=== PATIENT | male | born 1945 ===

== ENCOUNTER 2025-04-05 14:53 | Emergency (ER) | payer MEDICARE, BC, SELFPAY ==
[2025-04-05 15:05] VITALS: BP 152/70
[2025-04-05 15:39] LABS: Hematocrit 34.4 % (39.0-52.0); Hemoglobin 11.5 g/dL (13.0-18.0); Mean Corp Hgb Conc. 33.4 g/dL (33.0-37.0); Mean Corpuscular Volume 92.0 fL (80.0-94.0); Platelet Count 171 10^3/uL (130-400); Red Cell Dist. Width 12.2 % (11.5-14.5)
[2025-04-05 15:55] LABS: ALT (SGPT) 20 U/L (0-50); AST (SGOT) 26 U/L (17-59); Albumin 4.3 g/dl (3.5-5.0); Alkaline Phosphatase 60 U/L (38-126); Blood Urea Nitrogen 30 mg/dl (9-20); Calcium 10.1 mg/dl (8.4-10.2); Carbon Dioxide 23 mmol/L (22-30); Chloride 109 mmol/L (98-107); Glucose 92 mg/dl (70-99); Potassium 4.7 mmol/L (3.5-5.1); Sodium 139 mmol/L (135-145); Total Protein 7.3 g/dl (6.3-8.2); eGFR > 60.00
[2025-04-05 16:01] LABS: Troponin I < 0.012 ng/ml
[2025-04-05 16:25] LABS: Nucleated Red Blood Cells % 0 % (-)
[2025-04-05 17:39] VITALS: BP 146/70
[2025-04-05 18:00] VITALS: BP 122/70
[2025-04-05 18:14] VITALS: BMI 28.5
[2025-04-05 19:00] VITALS: BP 135/71
[2025-04-05 19:12] LABS: D-Dimer 0.66 ug/mlFEU (0.00-0.50)
[2025-04-05 19:23] LABS: COVID-19 Antigen Negative (Negative)
--- NOTE | 2025-04-05 19:38 | ED.GENMED ---
History of Present Illness
General
Chief Complaint: Breathing Problem
Source: patient
Exam Limitations: none
Time Seen by Provider: 04/05/25 17:55
Nursing documentation reviewed up to this point in time: agreed with
History of Present Illness
History of Present Illness:
SEE mdm
Review of Systems
Review of Systems
Allergies reviewed?: Yes
All Other Systems: Not applicable
Phy Exam
Physical Exam
Physical Exam:
SEE mdm
Scores
Heart Failure Risk
Heart Failure Risk Score: Not Applicable
Course
Orders/Labs/Results
Orders:
Orders
04/05/25 15:05
EKG [Electrocardiogram (*1)] Urgent
Reason for Study: Shortness of Breath
EKG- Treatment ONCE
04/05/25 15:15
BNP [NT-proBNP] Urgent
CBC/With Diff [Complete Blood Count/With Diff] Urgent
CMP [Comprehensive Metabolic Panel] Urgent
Troponin I Urgent
04/05/25 18:32
CR Chest - 2 Views Urgent
Comment:
Reason For Exam: h/o dvt, sob
Venous Doppler Lwr Ext Bilat [US Periph Venous LOWER Ext Nadeem] Urgent
Comment:
Reason For Exam: h/o dvt sob
04/05/25 18:43
COVID-19 Antigen Urgent
Source: Nasal Swab
D-Dimer Urgent
Influenza A+B Rapid Molecular Urgent
KILEY Source: Nasal Swab
Specimen Description:
Abnormal Lab Results
04/05/25 04/05/25
15:15 18:43
RBC 3.74 L 10^6/uL
(4.70-6.10)
Hgb 11.5 L g/dL
(13.0-18.0)
Hct 34.4 L %
(39.0-52.0)
Abs Immat Gran (auto) 0.1 H 10^3/uL
(0-0.05)
Absolute Lymphs (auto) 4.1 H 10^3/uL
(1.2-3.4)
Absolute Monos (auto) 0.7 H 10^3/uL
(0.1-0.6)
D-Dimer 0.66 H ug/mlFEU
(0.00-0.50)
Chloride 109 H mmol/L
(98-107)
BUN 30 H mg/dl
(9-20)
04/05/25 15:15
04/05/25 15:15
Vital Signs
Initial and Last Documented VS:
Initial Vital Signs
Temp Pulse Resp BP Pulse Ox
36.6 C 81 14 152/70 97
04/05/25 15:05 04/05/25 15:05 04/05/25 15:05 04/05/25 15:05 04/05/25 15:05
Last Documented Vital Signs
Temp Pulse Resp BP Pulse Ox
36.6 C 57 14 140/71 99
04/05/25 15:05 04/05/25 20:30 04/05/25 20:30 04/05/25 20:04 04/05/25 20:47
MDM/Problems Addressed
Differential Diagnosis Includes:
see MDM
MDM/Problems Addressed:
Note:
CHIEF COMPLAINT(S)
Shortness of breath
HISTORY OF PRESENT ILLNESS
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 Initially, the shortness of breath was
very sparing, occastionally feeling like he had a few breaths that were quick and then resolved, but it has been worsening very gradually. The patient notes that he can still walk with his walker and navigate down to the dining room and he doesn't
feel his activity is contributing to SOB feeling worse. he just told his about this feeling today; she has not noticed him to be SOB
pt did have URI about 3-4 days ago with congestion and sneeezing. no coughing
he did not test for covid and feels like he is getting better.
There is no associated chest pain, no history of syncope, or palpitations. Shortness of breath has not been severe enough to limit his daily activities significantly, and he has not experienced recent changes in weight or appetite.
PAST MEDICAL AND SURIGICAL HISTORY
The patient has a history of a deep venous thrombosis (DVT) prior to 1990, which was treated with anticoagulants. He underwent heart surgery including a triple bypass and has had stents placed in the past. He also had bladder cancer over ten years
ago, which was successfully treated. The patient has been dealing with prostate issues, leading him to moderate his liquid intake.
CHRONIC MEDICAL CONDITIONS SIGNIFICANTLY AFFECTING CARE
- History of heart surgery (triple bypass and stents)
- History of bladder cancer
- Prostate issues affecting urination patterns
- Previous deep venous thrombosis
SOCIAL DETERMINANTS AFFECTING HEALTH
The patient lives in a setting where he can manage with assistance and navigates the environment with a walker.
REVIEW OF SYSTEMS
ros: dyspnea
no chest pain, cough
uri symptoms congestion improving
no fever/chills
abd: no nausea/vomiting
no leg swelling/tendenress that is new from baseline; chronic club foot
PHYSICAL EXAM
GENERAL: Alert , in no apparent distress, speaking in full sentences, very well-appearing, comfortable, no distress
EYE: pupils equal and reactive
NECK: Supple
ENT: b/l TM s clear, pharynx erythematous but no tonsillar hypertrophy or exudates
CARDIAC: Regular rate and rhythm, no edema
R leg is slightly larger than left, congenitally; no edema
LUNGS: Clear breath sounds bilaterally, no acute respiratory distress, no wheezes/rales/rhonchi, occ cough
ABDOMEN: Soft, without focal tenderness, no r/g, no cvat, normal bowel sounds
NEUROLOGICAL: Alert and oriented, no focal neuro deficits
SKIN: Warm and dry, skin intact.
MUSCULOSKELETAL: R leg nontender but larger in circumfernece than L
congenital club foot L
PSYCH: Normal and appropriate interaction.
PROBLEM LIST
- Acute: Shortness of breath
- Chronic: History of heart surgery, irregular urination patterns due to prostate issues, previous deep venous thrombosis.
PLAN
- Order ultrasound of the legs to rule out deep venous thrombosis.
- Conduct a chest X-ray to assess for potential pneumonia or fluid around the heart.
- Perform a blood test, possibly a D-dimer, to evaluate for pulmonary embolism.
- Due to recent upper respiratory infection, consider testing for COVID-19.
- Encouraged to advance cardiology follow-up if symptoms worsen.
DIFFERENTIAL DIAGNOSIS
The Differential Diagnosis includes, in no particular order and is not limited to:
1. Pulmonary embolism
2. Congestive heart failure
3. Pneumonia
4. Chronic obstructive pulmonary disease exacerbation
5. Anxiety-related dyspnea
6. Covid-19 or other viral infections
7. Deconditioning
8. Anemia-related fatigue
9. Obstructive sleep apnea
10. Coronary artery disease exacerbation
04/05/25 - 20:27
80-year-old male complaining of intermittent very brief shortness of breath feeling which feels like he has to take an extra breath over the last month. He never told his about this until today. She has not noticed him to be dyspneic. He
does have a extensive cardiac history but has not had any chest discomfort. He chronically has a right lower extremity that is more large than the left side, he has a clubfoot and some other deformities to the left leg causing him ambulatory
dysfunction at baseline, he uses a walker. He has not been having any dyspnea with exertion that significant. Certainly not progressive rapidly. He did have a recent cold which he felt like may have made him feel little bit worse but he feels
better from that and he was not coughing during that. On exam he is very well-appearing with stable vital signs, no tachypnea or hypoxia or tachycardia. His lungs are clear. 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
leg but nonedematous. But given the discrepancy and the history of DVT I did do bilateral Dopplers which were negative. He also had an age-adjusted D-dimer that was also negative. And I had a low suspicion for a DVT PE
EKG nonischemic, no tachycardia
X-ray review suggests possible atelectasis, but no evidence of new pneumonia, fluid in the lungs, or cardiac fluid overload. Advised to expedite diesel engine specialist appointment to within one to two weeks for potential echocardiogram to assess heart
function and check for pericardial fluid. COVID and flu tests are negative, but past viral infections may contribute to symptoms. Plan to ensure stable oxygen levels before patient discharge.
2100
amblates slowly with walker at his baseline
sat 98%
no dyspnea
*Pulse Oximetry
SaO2: 100
Oxygen Mode of Delivery: Room air
Patient hypoxic: no (98)
*Critical Care Note
Total Time (30-74mins, 75-104mins- exclusive of procedures): Not Applicable
ED Attending Note
-
Portions of this chart may have been created with voice recognition software.� Occasional wrong word or��sound alike� substitutions may have occurred due to the inherent limitations of voice recognition software.
Discharge Plan
Departure
Patient Disposition: Home (Routine Discharge)
Date of Disposition: 04/05/25
Time of Disposition: 20:31
Patient with high blood pressure during this ER visit?: No
Condition: Fair
Discharge Problem:
Dyspnea
Instructions: Shortness of Breath (Dyspnea) (DC)
Prescriptions:
No Action
atorvastatin 40 MG tablet
40 mg PO QPM
desmopressin 0.2 MG tablet
0.1 mg PO HS
valproic acid 250 MG capsule
750 mg PO TID
aspirin [Adult Aspirin Regimen] 81 MG tablet,delayed release (DR/EC)
81 mg PO DAILY
lithium carbonate 300 MG capsule
300 mg PO DAILY
lisinopril 10 MG tablet
10 mg PO DAILY
tadalafil [Cialis] 5 MG tablet
5 mg PO PRN PRN (Reason: sex)
metoprolol tartrate 25 MG tablet
12.5 mg PO BID
silodosin [Rapaflo] 4 MG capsule
8 mg PO HS
mirabegron [Myrbetriq] 50 MG tablet extended release 24 hr
50 mg PO HS
Bladder 2.2
4.4 mg PO DAILY
ticagrelor [Brilinta] 90 MG tablet
90 mg PO BID Qty: 60 0RF
Referrals:
Nasim Parsons, DO [Family Provider, Internal Medicine] - Follow up in 2-3 days
Activity Restrictions/Additional Instructions:
WE ARE NOT SURE THE CAUSE OF YOUR SHORTNESS OF BREATH
IT DOES NOT SEEM TO BE CAUSED BY AN EMERGENCY TODAY
YOU HAD REASSURING EKG, LABS, XRAY, ULTRASOUND
IF THE RADIOLOGIST SEES SOMETHING ON YOUR XRAY WE WILL CALL YOU
YOU SHOULD CALL YOUR WORD PROCESSOR TECHNICIAN AND BE SURE TO MOVE UP YOUR APPOINTMENT DUE TO THESE SYMPTOMS
RETURN TO THE ER FOR PERSISTENT SHORTNESS OF BREATH, PASSING OUT, CHEST PAIN, FEVER, ETC
Interventions
Interventions:
*Risk Screen - Suicide Last Done: 04/05/25 15:05
*General Assessment Last Done: 04/05/25 15:05
*Neglect/Abuse Screening Last Done: 04/05/25 15:05
*ED COVID-19 Vaccine History Last Done: 04/05/25 15:05
*ED Influenza Vaccine History Last Done: 04/05/25 15:05
ED- Cardiac Assessment Last Done: 04/05/25 18:18
ED- Pulmonary Assessment Last Done: 04/05/25 18:18
Discharge Date and Time
Print Language: GREEK
[2025-04-05 20:04] VITALS: BP 140/71
== END 2025-04-05 21:55 | disposition home or self-care (01) ==
LOC: EMR 14:53
PROVIDERS: Emergency Medicine; Physician Assistant; EMERGENCY PHYSICIAN Emergency Medicine; FAMILY PHYSICIAN Internal Medicine
DX: R06.00 Dyspnea, unspecified (principal); Z11.52 Encounter for screening for COVID-19; Z85.51 Personal history of malignant neoplasm of bladder; Z86.718 Personal history of other venous thrombosis and embolism; Z95.1 Presence of aortocoronary bypass graft
CPT/HCPCS: 99285; 71046; 80053; 83880; 84484; 85025; 85379; 87502; 87811; 93005; 93970